=== PATIENT | female | born 1990 | race Caucasian/White ===

== ENCOUNTER 2017-12-21 11:20 | Emergency (ER) | payer SELFPAY ==
[2017-12-21] MEDS ORDERED: diphenhydrAMINE 50 MG/ML VIAL ONE (13:10)
[2017-12-21] MEDS ORDERED: Ketorolac Tromethamine 30 MG/ML VIAL ONE (13:10)
[2017-12-21] MEDS ORDERED: Metoclopramide HCl 10 MG/2 ML VIAL ONE (13:10)
== END 2017-12-21 16:20 | disposition home or self-care (01) ==
LOC: ERS 11:20
DX: J30.9 Allergic rhinitis, unspecified (principal); F17.290 Nicotine dependence, other tobacco product, uncomplicated
CPT/HCPCS: 96365; 96375; 99406; J1200; J1885; J2765